=== PATIENT | female | born 1975 | race Two or more races ===

== ENCOUNTER 2019-12-22 14:10 | Emergency (ER) | payer OTHER ==
[~2019-12-22] VITALS: Ht 154.9 cm; Wt 65.8 kg
--- NOTE | 2019-12-22 14:34 | NUR ---
ED Nurse Note: Pt walked into ED due to finger poke at work at the [employer]. Pt accidentally poked R 5th digit on hand on a needle at work. Pt finger is CDI, but was bleeding previously. Pt denies pain, numbness, tingling. Pt is alert and orientedx4, ambulatory.
--- NOTE | 2019-12-22 14:48 | NUR ---
ED Nurse Note: Blood labs sent.
[2019-12-22 14:49] VITALS: BP 159/90
--- NOTE | 2019-12-22 14:55 | Emergency Room Report ---
History of Present Illness General Chief Complaint: Upper Extremity Injury Source: Patient Present Illness HPI 44-year-old female presents to the emergency department complaining of accidental needlestick while at work earlier today. Patient reports she was picking up a dish and she felt a poke on her right fifth digit. Patient states she began bleeding. Patient states that she found a small sharp object underneath the plate which poked her and it was a lancet. Patient denies previous significant past medical history she denies history of hepatitis B, C or HIV. Patient denies history of immune compromise. She denies suspicion of . She reports bleeding has subsided at this time. Denies any other aggravating or relieving factors. Tetanus is not UTD. Allergies: Coded Allergies: No Known Allergies (Unverified , 12/22/19) Patient History Past Medical History: see triage record Past Surgical History: none Pertinent Family History: none Last Menstrual Period: 12/12/19 Now: No Reviewed Nursing Documentation: PMH: Agreed; PSxH: Agreed Nursing Documentation-PMH Past Medical History: No Stated History Review of Systems All Other Systems: negative except mentioned in HPI Physical Exam Vital Signs Date Time Temp Pulse Resp B/P (MAP) Pulse Ox O2 Delivery O2 Flow Rate FiO2 12/22/19 14:12 97.5 68 17 182/92 (122) 96 Room Air Sp02 EP Interpretation: reviewed, normal General Appearance: no apparent distress, alert, GCS 15, non-toxic Head: normocephalic, atraumatic Eyes: bilateral eye normal inspection, bilateral eye PERRL ENT: hearing grossly normal, normal voice Neck: full range of motion Respiratory: lungs clear, normal breath sounds, speaking full sentences Cardiovascular #1: regular rate, rhythm, normal capillary refill Musculoskeletal: normal range of motion, gait/station normal, non-tender Neurologic: alert, motor strength/tone normal, oriented x3, sensory intact, responsive, speech normal Psychiatric: judgement/insight normal Skin: other - Small pinpoint puncture wound noted to the right 5th digit distally. not bleeding at this time, no surrounding erythema, no evidence of secondary infection Medical Decision Making PA Attestation Dr. Murphy Is my supervising Physician whom patient management has been discussed with. Diagnostic Impression: Primary Impression: Needlestick injury of finger of right hand ER Course 44-year-old female presents to the emergency department complaining of accidental needlestick while at work earlier today. Patient reports she was picking up a dish and she felt a poke on her right fifth digit. Patient states she began bleeding. Patient states that she found a small sharp object underneath the plate which poked her and it was a lancet. Patient denies previous significant past medical history she denies history of hepatitis B, C or HIV. Patient denies history of immune compromise. She denies suspicion of . She reports bleeding has subsided at this time. Denies any other aggravating or relieving factors. Tetanus is not UTD. - Pt Reports receiving childhood required vaccinations including Hepatitis series. Ddx considered but are not limited to cellulitis, HIV exposure, hepatitis exposure, tetanus Vital signs: are WNL, pt. is afebrile H&PE are most consistent with : Needle sick injury, possible exposure. --Small pinpoint puncture wound noted to the right 5th digit distally. not bleeding at this time, no surrounding erythema, no evidence of secondary infection. ORDERS: -Anti-Hbs-ag: Negative - liver panel: WNL no acute elevation, or indication of chronic liver disease. - rapid HIV 1 & 2 : Negative - Hepatitis C Anti-body: Negative --Urine Hcg: Negative PT. EDUCATION: -Discussed with patient that since the incident occurred several hours ago testing her right now for contraction of the virus' would most likely be negative, and that she needs to followup in a month to be re-tested. She will be given copy of her lab results. ED INTERVENTIONS: -None required at this time. DISCHARGE: At this time pt. is stable for d/c to home. Will provide printed patient care instructions, and any necessary prescriptions. Care plan and follow up instructions have been discussed with the patient prior to discharge. Labs Test 12/22/19 14:46 White Blood Count 8.9 K/UL (4.8-10.8) Red Blood Count 5.05 M/UL (4.20-5.40) Hemoglobin 12.8 G/DL (12.0-16.0) Hematocrit 39.8 % (37.0-47.0) Mean Corpuscular Volume 79 FL (80-99) Mean Corpuscular Hemoglobin 25.3 PG (27.0-31.0) Mean Corpuscular Hemoglobin Concent 32.1 G/DL (32.0-36.0) Red Cell Distribution Width 13.7 % (11.6-14.8) Platelet Count 428 K/UL (150-450) Mean Platelet Volume 7.2 FL (6.5-10.1) Neutrophils (%) (Auto) 62.4 % (45.0-75.0) Lymphocytes (%) (Auto) 27.3 % (20.0-45.0) Monocytes (%) (Auto) 6.2 % (1.0-10.0) Eosinophils (%) (Auto) 3.2 % (0.0-3.0) Basophils (%) (Auto) 0.9 % (0.0-2.0) Urine HCG, Qualitative Negative (NEGATIVE) Sodium Level 128 MMOL/L (136-145) Potassium Level 3.7 MMOL/L (3.5-5.1) Chloride Level 99 MMOL/L (98-107) Carbon Dioxide Level 25 MMOL/L (21-32) Anion Gap 4 mmol/L (5-15) Blood Urea Nitrogen 12 mg/dL (7-18) Creatinine 0.8 MG/DL (0.55-1.30) Estimat Glomerular Filtration Rate > 60 mL/min (>60) Glucose Level 97 MG/DL (74-106) Calcium Level 9.4 MG/DL (8.5-10.1) Total Bilirubin 0.2 MG/DL (0.2-1.0) Aspartate Amino Transf (AST/SGOT) 16 U/L (15-37) Alanine Aminotransferase (ALT/SGPT) 24 U/L (12-78) Alkaline Phosphatase 85 U/L (46-116) Total Protein 8.2 G/DL (6.4-8.2) Albumin 3.9 G/DL (3.4-5.0) Globulin 4.3 g/dL Albumin/Globulin Ratio 0.9 (1.0-2.7) HIV (1&2) Antibody Rapid Negative (NEGATIVE) Last Vital Signs Date Time Temp Pulse Resp B/P (MAP) Pulse Ox O2 Delivery O2 Flow Rate FiO2 12/22/19 14:12 97.5 68 17 182/92 (122) 96 Room Air Disposition: HOME, SELF-CARE Condition: Stable Scripts Bacitracin (Bacitracin) 28.4 Gm Oint...g. 1 APPLIC TOPIC THREE TIMES A DAY, #28.4 GM Prov: Emi Bolden 12/22/19 Referrals: NOT CHOSEN IPA/MD,REFERRING (PCP) Patient Instructions: Needle Stick Injury, [id number] Additional Instructions: Take medications as directed. Follow up with a Primary Care Provider in 3-5 days, even if your symptoms have resolved. --Please review list of primary care clinics, if you do not already have a primary care provider Return sooner to ED if new symptoms occur, or current symptoms become worse. - Please note that this Emergency Department Report was dictated using [email or web address] ready worker technology software, occasionally this can lead to erroneous entry secondary to interpretation by the dictation equipment. Emi Bolden Dec 22, 2019 14:55
[2019-12-22 15:26] LABS: BASOPHILS % (AUTO) 0.9 % (0.0-2.0); EOSINOPHILS % (AUTO) 3.2 % (0.0-3.0); HEMATOCRIT 39.8 % (37.0-47.0); HEMOGLOBIN 12.8 G/DL (12.0-16.0); LYMPHOCYTES % (AUTO) 27.3 % (20.0-45.0); MEAN CORPUSCULAR VOLUME 79 FL (80-99); MONOCYTES % (AUTO) 6.2 % (1.0-10.0); NEUTROPHILS % (AUTO) 62.4 % (45.0-75.0); PLATELET COUNT 428 K/UL (150-450); RED BLOOD COUNT 5.05 M/UL (4.20-5.40); RED CELL DISTRIBUTION WIDTH 13.7 % (11.6-14.8); WHITE BLOOD COUNT 8.9 K/UL (4.8-10.8)
[2019-12-22 16:06] LABS: ANION GAP 4 mmol/L (5-15); BLOOD UREA NITROGEN 12 mg/dL (7-18); CALCIUM 9.4 MG/DL (8.5-10.1); CARBON DIOXIDE 25 MMOL/L (21-32); CHLORIDE 99 MMOL/L (98-107); CREATININE 0.8 MG/DL (0.55-1.30); POTASSIUM 3.7 MMOL/L (3.5-5.1); SODIUM 128 MMOL/L (136-145)
[2019-12-22 16:11] LABS: ALANINE AMINOTRANSFERASE 24 U/L (12-78); ALBUMIN 3.9 G/DL (3.4-5.0); ALBUMIN/GLOBULIN RATIO 0.9 (1.0-2.7); ALKALINE PHOSPHATASE 85 U/L (46-116); ASPARTATE AMINO TRANSFERASE 16 U/L (15-37); BILIRUBIN,TOTAL 0.2 MG/DL (0.2-1.0)
[2019-12-22] MEDS ORDERED: BACITRACIN15 GM TOPIC (16:27)
[2019-12-22 17:07] VITALS: BP 150/88
--- NOTE | 2019-12-22 17:07 | NUR ---
ER DISCHARGE NOTE: Patient is cleared to be discharged per ERMD, pt is aox4, on room air, with stable vital signs. pt was given dc and prescription instructions, pt was able to verbalize understanding, pt id band removed. pt is able to ambulate with steady gait. pt took all belongings.
== END 2019-12-22 17:08 | disposition home or self-care (01) ==
LOC: EMR 14:28
DX: S61.431A Puncture wound without foreign body of right hand, initial encounter (principal); W26.8XXA Contact with other sharp object(s), not elsewhere classified, initial encounter; Y92.9 Unspecified place or not applicable
CPT/HCPCS: 36415; 80053; 81025; 85025; 86703; 86803; 87517; 99283